=== PATIENT | male | born 1990 | race African-American/Black ===

== ENCOUNTER 2019-08-23 02:51 | Emergency (ER) | payer SELFPAY ==
[~2019-08-23] VITALS: Ht 193 cm; Wt 72.7 kg
[2019-08-23 03:23] LABS: BASO % 0.4 % (0.0-2.0); EOS % 0.1 % (0-4.0); GRAN # 7.2 (1.4-6.5); GRAN % 74.6 % (42.2-75.2); HEMATOCRIT 39.8 % (42.0-52.0); LYMPH # 1.7 (1.2-3.4); LYMPH % 17.4 % (20.0-51.0); MEAN CELL VOLUME 94 fl (80.0-100.0); MEAN CORPUSCULAR HEMOGLOBIN 31 pg (27.0-31.0); MEAN CORPUSCULAR HGB CONC 33 g/dl (33.0-37.0); MEAN PLATELET VOLUME 9.4 fl (7.4-10.4); MONO # 0.7 (0.1-0.6); MONO % 7.1 % (1.7-9.3); PLATELET COUNT 300 K/mm3 (130-400); RED BLOOD COUNT 4.25 M/mm3 (4.20-5.60); REDCELL DISTRIBUTION WIDTH-CV 11.3 % (11.5-14.5)
[2019-08-23 03:33] LABS: ALANINE AMINOTRANSFERASE 31 U/L (4-49); ALBUMIN 4.5 gm/dL (3.5-5.0); ALKALINE PHOSPHATASE 91 U/L (50-136); ANION GAP 11 mmol/L (7-16); AST,SGOT 55 U/L (15-37); BILIRUBIN,TOTAL 1.5 mg/dL (0.0-1.0); BLOOD UREA NITROGEN 15 mg/dL (9-20); CALCIUM 9.1 mg/dL (8.4-10.2); CARBON DIOXIDE 24 mmol/L (22-30); CHLORIDE 99 mmol/L (98-107); CREATININE, serum 1.15 (0.66-1.25); GLUCOSE 78 mg/dL (74-106); POTASSIUM 3.2 mmol/L (3.4-5.0); SODIUM 134 mmol/L (137-145); TOTAL PROTEIN 7.3 gm/dL (6.4-8.2)
[2019-08-23 03:39] LABS: ACETAMINOPHEN < 10 ug/mL (10-30); ALCOHOL(ethanol),MEDICAL < 10 mg/dL; SALICYLATE < 1.0 mg/dL
[2019-08-23 04:17] VITALS: BP 143/94; PULSE 94; TEMP 97.9
== END 2019-08-23 04:18 | disposition left against medical advice (07) ==
LOC: COL.ER 02:51
PROVIDERS: Emergency Medicine
DX: T43.622A Poisoning by amphetamines, intentional self-harm, initial encounter (principal); R41.82 Altered mental status, unspecified
CPT/HCPCS: J2060; J7030